=== PATIENT | female | born 1975 | race Hispanic/Latino ===

== ENCOUNTER 2018-03-03 14:13 | Emergency (ER) | payer SELFPAY ==
[2018-03-03] MEDS ORDERED: IPRATROPIUM/ALBUTEROL SULFATE 3 ML SOLUTION IH ONE (14:54)
[2018-03-03] MEDS ORDERED: METHYLPREDNISOLONE SOD SUCC 40MG/ML 1ML ONE (15:02)
== END 2018-03-03 15:48 | disposition home or self-care (01) ==
LOC: EDH 14:13
DX: J20.9 Acute bronchitis, unspecified (principal); F41.9 Anxiety disorder, unspecified
CPT/HCPCS: 71046; 81025; 87804 ×2; 93005; 94640; 96372; 99285; J2920